=== PATIENT | female | born 1970 | race American Indian/Alaskan Native ===

== ENCOUNTER 2022-06-15 07:53 | Day surgery (SDC) | payer OTHER ==
[2022-06-09 15:52] VITALS: BMI 31.6
[2022-06-15] MEDS ORDERED: PROPOFOL 20 ML ONE ×4 (07:57)
[2022-06-15 10:10] VITALS: TEMP 97.8
[2022-06-15 10:54] VITALS: BP 130/74; PULSE 79
== END 2022-06-15 10:50 | disposition home or self-care (01) ==
LOC: FASU-ENDO 07:53
PROVIDERS: ATTEND Internal Medicine Gastroenterology
PROC: 0DB98ZX Excision of Duodenum, Via Natural or Artificial Opening Endoscopic, Diagnostic (ICD-10-PCS; 2022-06-15)
PROC: 0DB68ZX Excision of Stomach, Via Natural or Artificial Opening Endoscopic, Diagnostic (ICD-10-PCS; 2022-06-15)
PROC: 0DJD8ZZ Inspection of Lower Intestinal Tract, Via Natural or Artificial Opening Endoscopic (ICD-10-PCS; principal; 2022-06-15 09:36)
DX: Z12.11 Encounter for screening for malignant neoplasm of colon (principal); K29.50 Unspecified chronic gastritis without bleeding; R12 Heartburn
CPT/HCPCS: 43239; G0121; 88305-TC; 88342-TC